=== PATIENT | male | born 1985 ===

== ENCOUNTER 2022-05-09 09:01 | Day surgery (SDC) | payer OTHER ==
[~2022-05-09] VITALS: Ht 193 cm; Wt 87.5 kg
[2022-05-09] MEDS ORDERED: KETO10TA2 PO (16:33)
[2022-05-09] MEDS ORDERED: TYLENOL ARTHRI650 MG PO (16:33)
[2022-05-09] MEDS ORDERED: ULTRAM50 MG PO (16:33)
[2022-05-09] MEDS ORDERED: MIRALAX17 GM PO (16:33)
== END 2022-05-10 01:00 | disposition home or self-care (01) ==
LOC: CIR.AMB 09:01
PROVIDERS: ATTEND Surgery
DX: K40.90 Unilateral inguinal hernia, without obstruction or gangrene, not specified as recurrent (principal); K42.9 Umbilical hernia without obstruction or gangrene; Z20.822 Contact with and (suspected) exposure to COVID-19; E78.5 Hyperlipidemia, unspecified; Z86.16 Personal history of COVID-19
CPT/HCPCS: 49650; 49652; C1781